=== PATIENT | female | born 1990 | race American Indian/Alaskan Native ===

== ENCOUNTER 2017-06-22 16:12 | Emergency (ER) | payer MEDICARE ==
[2017-06-22 17:12] VITALS: BP 122/79
[2017-06-22] MEDS ORDERED: TRIPLE ANTIBIOTIC TP ONE (19:07)
[2017-06-22] MEDS ORDERED: BOOSTRIX IM ONE (19:07)
--- NOTE | 2017-06-22 19:14 | Emergency Department Report ---
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 PT states her finger was bleeding and painful. 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 PT states she thought her finger would be okay, but this morning when she woke up, the "meat was hanging out" PT reports finger pain 05/23 PT states TDap is not UTD MD Complaint: extremity pain -: Sudden, days(s) Location: left (index finger ) History of Same: No Severity scale (0 -10): 7 Quality: sharp, constant Consistency: constant Improves with: nothing, other (did not improve with washing wound and dressing ) Associated Symptoms: denies other symptoms. denies: fever - Related Data Previous Rx's Medication Instructions Recorded Last Taken Type Acetaminophen/Codeine [Tylenol #3] 1 tab PO Q6H PRN #10 tab 06/22/17 Unknown Rx Clindamycin [Clindamycin CAP] 300 mg PO Q8H #30 cap 06/22/17 Unknown Rx Ibuprofen [Motrin] 600 mg PO Q8H PRN #20 tablet 06/22/17 Unknown Rx Allergies Allergy/AdvReac Type Severity Reaction Status Date / Time Penicillins Allergy Hives Verified 06/22/17 17:07 ED Review of Systems ROS: Stated complaint: FINGER LAC Other details as noted in HPI Comment: All other systems reviewed and negative Constitutional: denies: chills, fever Genitourinary: denies: abnormal menses (lmp 1 week ago ) Musculoskeletal: as per HPI Skin: as per HPI ED Past Medical Hx - Past Medical History Previous Medical History?: Yes Hx Psychiatric Treatment: Yes (Bi-Polar, scizophernia affected) - Surgical History Past Surgical History?: No - Social History Smoking Status: Current Every Day Smoker Substance Use Type: Alcohol - Medications Home Medications: Home Medications Medication Instructions Recorded Confirmed Last Taken Type Acetaminophen/Codeine [Tylenol #3] 1 tab PO Q6H PRN #10 tab 06/22/17 Unknown Rx Clindamycin [Clindamycin CAP] 300 mg PO Q8H #30 cap 06/22/17 Unknown Rx Ibuprofen [Motrin] 600 mg PO Q8H PRN #20 tablet 06/22/17 Unknown Rx ED Physical Exam - General Limitations: No Limitations General appearance: alert, appears intoxicated - Head Head exam: Present: atraumatic, normocephalic, normal inspection - Eye Eye exam: Present: normal appearance, PERRL, EOMI. Absent: conjunctival injection - ENT ENT exam: Present: normal exam, normal external ear exam - Neck Neck exam: Present: normal inspection, full ROM - Respiratory Respiratory exam: Present: normal lung sounds bilaterally. Absent: respiratory distress - Cardiovascular Cardiovascular Exam: Present: regular rate, normal rhythm - Extremities Exam Extremities exam: Present: full ROM, tenderness - Expanded Upper Extremity Exam Right General: Present: normal inspection. Absent: laceration, abrasion, amputation Left General: Present: laceration Shoulder Exam: Present: normal inspection, full ROM Elbow exam: Present: normal inspection, full ROM Forearm Wrist exam: Present: normal inspection, full ROM Hand Wrist exam: Present: full ROM, tenderness (to L index finger ), swelling, laceration. Absent: normal inspection (1 cm laceration to the chaidez aspect of the L index finger ), ecchymosis, deformity, erythema, amputation, nail avulsion, subungual hematoma Hand L/R Front: 1 - Positive: laceration (1 cm). Negative: foreign body, amputation, avulsion Neuro motor exam: Present: fingers 2-5 abduction intact Neurosensory exam: Present: radial nerve intact Vascular: Present: radial pulse. Absent: vascular compromise - Back Exam Back exam: Present: normal inspection, full ROM - Neurological Exam Neurological exam: Present: alert, oriented X3, normal gait - Psychiatric Psychiatric exam: Present: normal affect, normal mood - Skin Skin exam: Present: warm, dry. Absent: intact ED Course Vital Signs 06/22/17 17:07 Temperature 97.6 F Pulse Rate 81 Respiratory 18 Rate Blood Pressure 122/79 O2 Sat by Pulse 100 Oximetry - Reevaluation(s) Reevaluation #1: 06/22/17 19:19 PT aware of plan of care. No questions at this time. Reevaluation #2: 06/22/17 20:18 PT aware no fx seen on XR. PT placed in aluminum splint. PT NVI. - Pulse Oximetry Interpretation Digit-Finger Initial Pulse Oximetry Readin Actions Taken: none ED Medical Decision Making - Radiology Data Radiology results: image reviewed interpreted by me: XR L index finger - no FX - Differential Diagnosis laceration, fb, fx Critical Care Time: No Critical care attestation.: If time is entered above; I have spent that time in minutes in the direct care of this critically ill patient, excluding procedure time. ED Disposition Clinical Impression: Strain of left index finger Laceration of left index finger Qualifiers: Encounter type: initial encounter Damage to nail status: without damage Foreign body presence: without foreign body Qualified Code(s): S61.211A - Laceration without foreign body of left index finger without damage to nail, initial encounter Injury of left index finger Qualifiers: Encounter type: initial encounter Qualified Code(s): S69.92XA - Unspecified injury of left wrist, hand and finger(s), initial encounter Disposition: TO HOME OR SELFCARE Is pt being admited?: No Does the pt Need Aspirin: No Condition: Stable Instructions: Finger Laceration (ED) Additional Instructions: No driving or alcohol after taking Tylenol #3 for your pain Wear the finger splint when you are up and active wash the laceration site at least twice a day and cover with a thin layer of otc antibiotic ointment and then cover with bandage Return to ED if your finger has swelling, drainage, redness or you can not bend it Follow up with Ortho in 3-5 days Prescriptions: Acetaminophen/Codeine [Tylenol #3] 1 tab PO Q6H PRN #10 tab PRN Reason: Pain , Severe (7-10) Clindamycin [Clindamycin CAP] 300 mg PO Q8H #30 cap Ibuprofen [Motrin] 600 mg PO Q8H PRN #20 tablet PRN Reason: Pain Referrals: PRIMARY CARE, [Primary Care Provider] - 3-5 Days MERCEDES CHINO MD, PHD [Staff Physician] - 3-5 Days CIELO SEAY MD [Staff Physician] - 3-5 Days [facility] [Outside] - 3-5 Days Forms: Work/School Release Form(ED) Time of Disposition: 20:19
--- NOTE | 2017-06-23 08:03 | XRay Report ---
Left index finger: History: Left index finger injury. Findings: Minimal cortical irregularity noted at the palmar aspect of the mid portion of proximal phalanx of left index finger. This may be congenital or related to old injury. No radiopaque foreign bodies in the soft tissue. Impression: Findings as detailed above. Clinical correlation advised.
== END 2017-06-22 20:25 | disposition home or self-care (01) ==
LOC: ED 16:12 → EDBD 16:12 → ED 20:25
DX: S61.211A Laceration without foreign body of left index finger without damage to nail, initial encounter (principal); S56.412A Strain of extensor muscle, fascia and tendon of left index finger at forearm level, initial encounter; F31.9 Bipolar disorder, unspecified; F20.9 Schizophrenia, unspecified; F17.200 Nicotine dependence, unspecified, uncomplicated; Z88.0 Allergy status to penicillin; W20.8XXA Other cause of strike by thrown, projected or falling object, initial encounter; Y93.89 Activity, other specified; Y99.8 Other external cause status; Y92.89 Other specified places as the place of occurrence of the external cause
CPT/HCPCS: 90471; 90715; A6250

== ENCOUNTER 2017-07-04 18:47 | Emergency (ER) | payer MEDICARE ==
[2017-07-04 20:28] LABS: Basophils % (Auto) 0.7 % (0.0-1.8); Eosinophils % (Auto) 1.6 % (0.0-4.3); Hematocrit 39.4 % (30.3-42.9); Hemoglobin 13.5 gm/dl (10.1-14.3); Mean Corpuscular HGB Conc 34 % (30-34); Mean Corpuscular Hemoglobin 31 pg (28-32); Mean Corpuscular Volume 89 fl (79-97); Platelet Count 242 K/mm3 (140-440); Red Blood Count 4.44 M/mm3 (3.65-5.03); Red Cell Distribution Width 14.1 % (13.2-15.2); White Blood Count 13.2 K/mm3 (4.5-11.0)
[2017-07-04 20:47] LABS: Anion Gap 19 mmol/L; Blood Urea Nitrogen 5 mg/dL (7-17); Carbon Dioxide 22 mmol/L (22-30); Chloride 105.4 mmol/L (98-107); Glucose 86 mg/dL (65-100); Potassium 4.1 mmol/L (3.6-5.0); Sodium 142 mmol/L (137-145)
[2017-07-04] MEDS ORDERED: TORADOL IV ONE (20:52)
[2017-07-04] MEDS ORDERED: ATROVENT IH ONE (20:52)
[2017-07-04] MEDS ORDERED: MAGNESIUM SULFATE 2GM/50ML 2 GM/50 ML BAG IV ONE (20:52)
[2017-07-04] MEDS ORDERED: PROVENTIL IH ONE (20:52)
[2017-07-04] MEDS ORDERED: NACL 0.9% 1000 ML 1,000 ML IV ONE (20:52)
--- NOTE | 2017-07-04 20:54 | Emergency Department Report ---
ED Asthma HPI - General Chief Complaint: Adult Asthma Stated Complaint: DYSPNEA Time Seen by Provider: 07/04/17 20:29 Source: patient, EMS (ems notes not available at time of chart dictation), RN notes reviewed Mode of arrival: Stretcher Limitations: No Limitations - History of Present Illness Initial Comments: This is a 27-year-old female. She is previously unknown to me. She reports that she is not . She does not have a local primary care doctor. She reports a history of asthma, tobacco consumption and bronchitis. She reports that neither herself nor her significant other have consumed tobacco since the of the month. She complains of cough, mucus production, wheezing, shortness of breath, and rash on the left hemithorax. She is concerned about mold exposure at her job. Her symptoms are constant. Worse with physical exertion. It decreased with rest. There is no posterior leg pain. There is no posterior leg swelling. No recent trips greater than 4 hours. Reports that she is not , and indicates she does not take control tablets. This is similar to prior episodes of asthma exacerbation. MD Complaint: "asthma attack", shortness of breath, wheezing -: Gradual Asthma History: childhood onset Context: recent URI, allergen exposure (patient thinks that she was exposed to mold at work) Associated Symptoms: productive cough - Related Data Home Medications Medication Instructions Recorded Confirmed Last Taken ProAir HFA Inhaler 1 - 2 puff PRN 07/04/17 07/04/17 Previous Rx's Medication Instructions Recorded Last Taken Type Acyclovir [Zovirax Tab] 800 mg PO 5XD #30 tab 07/04/17 Unknown Rx Albuterol Sulfate [Albuterol 0.63% 0.63 mg IH Q4HR PRN #2 ml 07/04/17 Unknown Rx NEBS] Albuterol Sulfate [Proair 90 mcg IH Q4HR PRN #2 aer.pow.ba 07/04/17 Unknown Rx Respiclick] Benzonatate [Tessalon Perles] 100 mg PO Q8HR PRN #30 capsule 07/04/17 Unknown Rx Fluticasone [Flonase] 1 spray NS QDAY #1 bottle 07/04/17 Unknown Rx Ibuprofen [Motrin] 600 mg PO Q8H PRN #30 tablet 07/04/17 Unknown Rx Ipratropium [place] [Atrovent Hfa] 12.9 gm IH Q4HR #2 hfa.aer.ad 07/04/17 Unknown Rx Ipratropium [Atrovent NEB] 0.5 mg IH Q4HR #2 ml 07/04/17 Unknown Rx Lidocaine [Lidoderm Patch] 1 each TP BID PRN #5 adh..patch 07/04/17 Unknown Rx predniSONE [Deltasone] 40 mg PO QDAY #8 tab 07/04/17 Unknown Rx Allergies Allergy/AdvReac Type Severity Reaction Status Date / Time Penicillins Allergy Hives Verified 06/22/17 17:07 ED Review of Systems ROS: Stated complaint: DYSPNEA Other details as noted in HPI Constitutional: malaise, weakness Eyes: denies: vision change ENT: congestion Respiratory: shortness of breath, wheezing Cardiovascular: dyspnea on exertion Gastrointestinal: denies: abdominal pain Genitourinary: denies: dysuria Musculoskeletal: arthralgia, myalgia Skin: rash, lesions Neurological: weakness ED Past Medical Hx - Past Medical History Previous Medical History?: Yes Hx Psychiatric Treatment: Yes (Bi-Polar, scizophernia affected) Hx Asthma: Yes - Social History Smoking Status: Former Smoker - Medications Home Medications: Home Medications Medication Instructions Recorded Confirmed Last Taken Type Acyclovir [Zovirax Tab] 800 mg PO 5XD #30 tab 07/04/17 Unknown Rx Albuterol Sulfate [Albuterol 0.63% 0.63 mg IH Q4HR PRN #2 ml 07/04/17 Unknown Rx NEBS] Albuterol Sulfate [Proair 90 mcg IH Q4HR PRN #2 aer.pow.ba 07/04/17 Unknown Rx Respiclick] Benzonatate [Tessalon Perles] 100 mg PO Q8HR PRN #30 capsule 07/04/17 Unknown Rx Fluticasone [Flonase] 1 spray NS QDAY #1 bottle 07/04/17 Unknown Rx Ibuprofen [Motrin] 600 mg PO Q8H PRN #30 tablet 07/04/17 Unknown Rx Ipratropium [place] [Atrovent Hfa] 12.9 gm IH Q4HR #2 hfa.aer.ad 07/04/17 Unknown Rx Ipratropium [Atrovent NEB] 0.5 mg IH Q4HR #2 ml 07/04/17 Unknown Rx Lidocaine [Lidoderm Patch] 1 each TP BID PRN #5 adh..patch 07/04/17 Unknown Rx ProAir HFA Inhaler 1 - 2 puff PRN 07/04/17 07/04/17 History predniSONE [Deltasone] 40 mg PO QDAY #8 tab 07/04/17 Unknown Rx ED Physical Exam - General Limitations: No Limitations General appearance: alert, in no apparent distress - Head Head exam: Present: atraumatic, normocephalic - Eye Eye exam: Present: normal appearance, EOMI. Absent: nystagmus - ENT ENT exam: Present: normal exam, normal orophraynx, mucous membranes moist, normal external ear exam - Neck Neck exam: Present: normal inspection, full ROM - Respiratory Respiratory exam: Present: respiratory distress, wheezes, rhonchi, other (there is a vesicular rash in the left hemithorax, just inferior to the breast. During the breast examination, I am escorted by nurse Abigail Brink. There is no cellulitis or superinfection.) - Cardiovascular Cardiovascular Exam: Present: normal rhythm, tachycardia, normal heart sounds. Absent: systolic murmur, diastolic murmur, rubs, gallop - GI/Abdominal GI/Abdominal exam: Present: soft, normal bowel sounds. Absent: distended, tenderness, guarding, rebound, rigid - Extremities Exam Extremities exam: Present: normal inspection, full ROM, normal capillary refill. Absent: pedal edema, joint swelling, calf tenderness - Back Exam Back exam: Present: normal inspection, full ROM. Absent: tenderness, CVA tenderness (R), CVA tenderness (L), muscle spasm, paraspinal tenderness, vertebral tenderness - Neurological Exam Neurological exam: Present: alert, oriented X3, normal gait, other (Extraocular movements intact. Tongue midline. No facial droop. Facial sensation intact to light touch in the V1, V2, V3 distribution bilaterally. 5 and 5 strength in 4 extremities.. Sensation is intact to light touch in 4 extremities.). Absent : motor sensory deficit - Psychiatric Psychiatric exam: Present: normal affect, normal mood - Skin Skin exam: Present: warm, dry, intact, normal color. Absent: rash ED Course Vital Signs 07/04/17 07/04/17 07/04/17 19:26 19:30 19:35 Temperature 98.6 F Pulse Rate 91 H Respiratory 18 Rate Blood Pressure 107/70 113/79 O2 Sat by Pulse 88 100 99 Oximetry 07/04/17 07/04/17 07/04/17 20:33 21:00 21:30 Temperature Pulse Rate Respiratory Rate Blood Pressure 107/70 105/86 119/78 O2 Sat by Pulse 97 100 Oximetry 07/04/17 07/04/17 07/04/17 22:00 22:01 22:31 Temperature Pulse Rate 94 H Respiratory 18 Rate Blood Pressure 116/74 116/74 O2 Sat by Pulse 100 99 Oximetry ED Medical Decision Making - Lab Data Result diagrams: 07/04/17 20:06 07/04/17 20:06 Vital Signs 07/04/17 07/04/17 07/04/17 19:26 19:30 19:35 Temperature 98.6 F Pulse Rate 91 H Respiratory 18 Rate Blood Pressure 107/70 113/79 O2 Sat by Pulse 88 100 99 Oximetry 07/04/17 07/04/17 07/04/17 20:33 21:00 21:30 Temperature Pulse Rate Respiratory Rate Blood Pressure 107/70 105/86 119/78 O2 Sat by Pulse 97 100 Oximetry 07/04/17 22:01 Temperature Pulse Rate 94 H Respiratory 18 Rate Blood Pressure O2 Sat by Pulse Oximetry Lab Results 07/04/17 07/04/17 Range/Units 20:06 20:06 WBC 13.2 H (4.5-11.0) K/mm3 RBC 4.44 (3.65-5.03) M/mm3 Hgb 13.5 (10.1-14.3) gm/dl Hct 39.4 (30.3-42.9) % MCV 89 (79-97) fl MCH 31 (28-32) pg MCHC 34 (30-34) % RDW 14.1 (13.2-15.2) % Plt Count 242 (140-440) K/mm3 Lymph % (Auto) 25.9 (13.4-35.0) % [place] % (Auto) 6.4 (0.0-7.3) % Eos % (Auto) 1.6 (0.0-4.3) % Baso % (Auto) 0.7 (0.0-1.8) % Lymph # 3.4 (1.2-5.4) K/mm3 [place] # 0.8 (0.0-0.8) K/mm3 Eos # 0.2 (0.0-0.4) K/mm3 Baso # 0.1 (0.0-0.1) K/mm3 Seg Neutrophils % 65.4 (40.0-70.0) % Seg Neutrophils # 8.6 H (1.8-7.7) K/mm3 Sodium 142 (137-145) mmol/L Potassium 4.1 (3.6-5.0) mmol/L Chloride 105.4 (98-107) mmol/L Carbon Dioxide 22 (22-30) mmol/L Anion Gap 19 mmol/L BUN 5 L (7-17) mg/dL Creatinine 0.5 L (0.7-1.2) mg/dL Estimated GFR > 60 ml/min BUN/Creatinine Ratio 10.00 % Glucose 86 (65-100) mg/dL Calcium 9.0 (8.4-10.2) mg/dL Troponin T < 0.010 (0.00-0.029) ng/mL - EKG Data -: EKG Interpreted by Me EKG shows normal: sinus rhythm, ST-T waves Rate: normal - EKG Data When compared to previous EKG there are: previous EKG unavailable 07/04/17 23:17 Normal sinus, 88 bpm, normal axis, not morphologically consistent with stemi - Radiology Data Radiology results: image reviewed interpreted by me: X-ray of the chest is negative for acute disease - Medical Decision Making Assessment and plan: Asthma, pneumonia, bronchitis, shingles Assessment and plan: 27-year-old female with cough, wheezing, shortness of breath, mucus production, likely asthma versus bronchitis. No pulmonary embolus or DVT risk factors, low risk by well's criteria, also low risk by revise [place] criteria. Patient was Evaluated by myself multiple times while in the department. She was given multiple rounds of albuterol, Atrovent, steroids, magnesium, and pain medication. At this point time, she is still wheezing, but saturating well, and able to and really without desaturation. She is suitable for discharge at this point in time. I appreciate that the patient has a current vesicular outbreak, and thinks that she is within 72 hours of the lesions starting. Therefore, she'll be started on acyclovir. I appreciate that she is getting steroids, for her asthma, I think the benefits outweigh the risks, given the fact that she is wheezing so impressively. She is to follow-up with an outpatient primary care doctor for further management. Critical care attestation.: If time is entered above; I have spent that time in minutes in the direct care of this critically ill patient, excluding procedure time. ED Disposition Clinical Impression: Shingles, Asthma exacerbation Disposition: DC-01 TO HOME OR SELFCARE Is pt being admited?: No Does the pt Need Aspirin: No Condition: Stable Instructions: Asthma (ED) Additional Instructions: Discontinue consumption of tobacco and tobacco-related products. Any family members and/or household contacts who are also consuming tobacco and tobacco- related products to discontinue. Use the albuterol, Atrovent, steroids as directed. Use the pain medication, cough medication as directed. Use lidocaine patch as directed. I recommend that you follow-up with a primary care doctor or the health department within the next 2 weeks for outpatient testing for HIV, syphilis and hepatitis. I recommend follow-up with a primary care doctor within the next 2 weeks for your shortness of breath. It is theoretically possible that exposure to molds, pollen, and other allergens inside and outside, including smoke, could have caused her symptoms. Therefore, try to minimize contact with these agents. Return to the ER right away with fevers, chills, chest pain, shortness of breath , confusion, intractable nausea or vomiting, inability to tolerate liquid feeds. Prescriptions: Acyclovir [Zovirax Tab] 800 mg PO 5XD #30 tab Albuterol Sulfate [Albuterol 0.63% NEBS] 0.63 mg IH Q4HR PRN #2 ml PRN Reason: Wheezing Albuterol Sulfate [Proair Respiclick] 90 mcg IH Q4HR PRN #2 aer.pow.ba PRN Reason: Wheezing Benzonatate [Tessalon Perles] 100 mg PO Q8HR PRN #30 capsule PRN Reason: Cough Fluticasone [Flonase] 1 spray NS QDAY #1 bottle Ibuprofen [Motrin] 600 mg PO Q8H PRN #30 tablet PRN Reason: Pain Ipratropium [Atrovent NEB] 0.5 mg IH Q4HR #2 ml Ipratropium [place] [Atrovent Hfa] 12.9 gm IH Q4HR #2 hfa.aer.ad Lidocaine [Lidoderm Patch] 1 each TP BID PRN #5 adh..patch PRN Reason: Pain predniSONE [Deltasone] 40 mg PO QDAY #8 tab Referrals: PRIMARY CARE, [Primary Care Provider] - 3-5 Days HOANG MENDEZ MD [Staff Physician] - 3-5 Days [facility] [Outside] - 3-5 Days Forms: Work/School Release Form(ED)
[2017-07-04 23:22] VITALS: BP 116/74
--- NOTE | 2017-07-05 07:22 | XRay Report ---
Chest 2 views: History: Shortness of breath. Findings: Normal cardiomediastinal silhouette. Trachea is midline. No consolidation, pneumothorax or pleural effusion. Impression: No acute cardiopulmonary findings.
== END 2017-07-05 00:16 | disposition home or self-care (01) ==
LOC: ED 18:47
DX: J45.901 Unspecified asthma with (acute) exacerbation (principal); B02.9 Zoster without complications; Z87.891 Personal history of nicotine dependence
CPT/HCPCS: 36415; 71020; 80048; 84484; 85025; 93005; 93010; 94640; 96365; 96375; 99284; J1885; J2930; J3475; J7030